=== PATIENT | female | born 1950 | race Caucasian/White ===

== ENCOUNTER → 2025-03-09 10:25 | Outpatient (REF) | payer MEDICARE, SELFPAY | LOC: HWWDC 10:25 | PROVIDERS: ATTENDING PHYSICIAN Family Medicine | DX: M81.0 Age-related osteoporosis without current pathological fracture (principal); Z12.31 Encounter for screening mammogram for malignant neoplasm of breast | CPT/HCPCS: 77063; 77067; 77080 ==

== ENCOUNTER → 2025-04-05 11:11 | Outpatient (REF) | payer MEDICARE, SELFPAY | LOC: HWRAD 11:11 | PROVIDERS: ATTENDING PHYSICIAN Family Medicine; REFERRING PHYSICIAN Internal Medicine Cardiovascular Disease | DX: I48.0 Paroxysmal atrial fibrillation (principal); M05.59 Rheumatoid polyneuropathy with rheumatoid arthritis of multiple sites; I10 Essential (primary) hypertension; Z95.810 Presence of automatic (implantable) cardiac defibrillator; E53.8 Deficiency of other specified B group vitamins; N32.81 Overactive bladder; R26.9 Unspecified abnormalities of gait and mobility; E78.2 Mixed hyperlipidemia | CPT/HCPCS: 75571 ==